=== PATIENT | female | born 1980 | race Caucasian/White ===

== ENCOUNTER 2016-12-20 16:46 | Emergency (ER) | payer BC ==
[~2016-12-20 16:46] MED LIST: ABILIFY10 MG PO; ABILIFY5 M1 PO; AMETHYST 90-201 EACH PO; ATIVAN1 M2 PO; BACTRIM 400-801 EAC1 PO; BUSPIRONE HCL15 M2 PO; COLACE100 M1 PO; FIORICET1 TA1 PO; IBUPROFEN800 M1 PO; KLONOPIN1 MG PO; KLONOPIN2 M1 PO; LAMICTAL200 MG; LAMICTAL25 M2 PO; LATUDA40 M1 PO; MULTIVITAMINS1 EAC6 PO; PERCOCET 5-3251 EACH PO; PHENTERMINE H37.5 M1 PO; PRENATAL 19 TA1 EAC1 PO; PRENATAL1 TAB PO; PROPRANOLOL HCL60 M2 PO; PROZAC20 MG PO; SEROQUEL X300 MG/TAB PO; SEROQUEL200 MG PO; SEROQUEL300 M1 PO; SPRIX NS; SUDAFED30 MG; TAMIFLU30 M1 PO; TOPAMAX25 M2 PO; TYLENOL EXTRA500 MG; VISTARIL25 M1 PO; VISTARIL25 MG; VISTARIL50 M1 PO; WELLBUTRIN SR150 M2 PO; XANAX XR1 M1 PO; XANAX0.5 M1 PO; ZOFRAN4 M2 PO
[2016-12-20] MEDS ORDERED: CAMBIA50 M1 PO (16:52)
[2016-12-20] MEDS ORDERED: MACRODANTIN100 M1 PO (16:53)
[2016-12-20] MEDS ORDERED: KLONOPIN1 M1 PO (16:53)
[2016-12-20] MEDS ORDERED: OMEPRAZOLE20 M3 PO (16:53)
[2016-12-20] MEDS ORDERED: GLUCOPHAGE500 M3 PO (16:54)
[2016-12-20] MEDS ORDERED: VYVANSE70 M1 PO (16:54)
[2016-12-20] MEDS ORDERED: FLUOXETINE HCL PO (16:54)
[2016-12-20] MEDS ORDERED: ABILIFY10 M1 PO (16:54)
[2016-12-20] MEDS ORDERED: PROVIGIL200 M1 PO (16:55)
[2016-12-20] MEDS ORDERED: WELLBUTRIN XL300 M3 PO (16:55)
[2016-12-20] MEDS ORDERED: CYCLOBENZAPRINE10 M1 PO (16:56)
[2016-12-20] MEDS ORDERED: ASHLYNA 0.15-01 EACH PO (16:56)
[2016-12-20] MEDS ORDERED: VITAMIN D250000 UNI1 PO (16:57)
[2016-12-20] MEDS ORDERED: FIORINAL 50-321 EACH PO (16:59)
[2016-12-20] MEDS ORDERED: PROZAC20 M3 PO (17:28)
== END 2016-12-20 19:23 ==
LOC: EDMED 16:46
DX: G43.909 Migraine, unspecified, not intractable, without status migrainosus (principal); L40.50 Arthropathic psoriasis, unspecified; Z98.890 Other specified postprocedural states; Z79.899 Other long term (current) drug therapy
CPT/HCPCS: J0780; J1200; J2060; J2270; J7030